=== PATIENT | male | born 1955 | race Caucasian/White ===

== ENCOUNTER 2017-05-09 08:02 | Outpatient (CLI) | payer OTHER ==
[2017-05-09 13:14] LABS: BASOPHILS % (AUTO) 0.6 %; EOSINOPHILS # (AUTO) 0.1 10^3/uL (0.0-0.7); EOSINOPHILS % (AUTO) 1.7 %; HCT - HEMATOCRIT 47.6 % (42.0-52.0); HGB - HEMOGLOBIN 16.9 g/dL (14.0-18.0); LYMPHOCYTES # (AUTO) 1.9 10^3/uL (1.5-3.5); LYMPHOCYTES % (AUTO) 38.4 %; MEAN CORPUSCULAR HGB CONC 35.5 g/dL (32.0-36.0); MEAN CORPUSCULAR VOLUME 90.2 fL (80.0-94.0); MEAN PLATELET VOLUME 8.2 fL (7.4-11.4); MONOCYTES # (AUTO) 0.4 10^3/uL (0.0-1.0); MONOCYTES % (AUTO) 7.7 %; NEUTROPHILS # (AUTO) 2.6 10^3/uL (1.5-6.6); NEUTROPHILS % (AUTO) 51.6 %; NUCLEATED RED BLOOD CELLS AUTO 0.1 /100WBC; RED BLOOD COUNT 5.27 10^6/uL (4.70-6.10); RED CELL DISTRIBUTION WIDTH 13.4 % (12.0-15.0)
[2017-05-09 13:35] LABS: ALBUMIN/GLOBULIN RATIO 2.2 (1.0-2.2); BUN - BLOOD UREA NITROGEN 17 mg/dL (6-20); CALCIUM 9.5 mg/dL (8.5-10.3); CARBON DIOXIDE - CO2 26 mmol/L (21-32); CHLORIDE 104 mmol/L (101-111); CHOL/HDL RATIO 6.3 (<5.0); CHOLESTEROL 246 mg/dL; GFR - MDRD 75 (>89); GLUCOSE 114 mg/dL (70-100); HDL CHOLESTEROL 39 mg/dL; POTASSIUM 4.1 mmol/L (3.5-5.0); SODIUM 137 mmol/L (135-145); TOTAL PROTEIN 7.4 g/dL (6.7-8.2); TRIGLYCERIDES 434 mg/dL
[2017-05-09 13:54] LABS: LDL CHOLESTEROL,DIRECT 125 mg/dL
== END 2017-05-09 08:03 | disposition home or self-care (01) ==
LOC: LAB.WCP 08:02
PROVIDERS: ATTEND Family Medicine
DX: I10 Essential (primary) hypertension (principal); K21.9 Gastro-esophageal reflux disease without esophagitis; E78.5 Hyperlipidemia, unspecified; N40.0 Benign prostatic hyperplasia without lower urinary tract symptoms
CPT/HCPCS: 36415; 80053; 80061; 84153; 85025

== ENCOUNTER 2019-11-01 08:00 | Outpatient (CLI) | payer MEDICARE, OTHER | END 2019-11-01 23:59 | disposition home or self-care (01) | LOC: LAB.WCP 08:00 | PROVIDERS: ATTEND Family Medicine | DX: Z11.59 Encounter for screening for other viral diseases (principal) | CPT/HCPCS: 81599 ==

== ENCOUNTER 2023-12-23 08:13 | Outpatient (CLI) | payer MEDICARE, OTHER ==
[2023-12-23] MEDS ORDERED: iohexoL-300 100 ML VIAL ONE (08:22)
[2023-12-23] MEDS: iohexoL-300 100 ML VIAL IVP ONE (08:51)
--- NOTE | 2023-12-24 17:44 | CT Report ---
PROCEDURE: Abdomen W/WO INDICATIONS: ABN US OF KIDNEYS CONTRAST: Omni 300 140ml TECHNIQUE: After the administration of intravenous contrast, 5 mm thick sections acquired from the diaphragm to the symphysis. 5 mm coronal and sagittal reformats were acquired. For radiation dose reduction, the following was used: automated exposure control, adjustment of mA and/or kV according to patient siz e. COMPARISON: Correlation is made with ultrasound, 10/24/2023 FINDINGS: Image quality: Excellent. Genitourinary: On precontrast imaging, no stones are seen. On postcontrast imaging, no masses are seen. On the right, there is a likely prominent column of prot ein. When filled with contrast, the renal calyces and the visualized ureters demonstrate no filling defect s. OTHER: Lung bases and heart: Unremarkable. Liver: No solid mass. Multiple enhancing liver lesions are seen, measuring up to 11 mm, which most li neftali represent cysts. There is a potential liver hemangioma seen within segment 5, as on series 14 im age 21, measuring 18 mm. Gallbladder and biliary tree: Within normal limits. Spleen: No splenomegaly. Pancreas: No pancreatic ductal dilation. Adrenals: No adrenal nodule. Bowel and peritoneum: No bowel distension. No pathologic free fluid. Lymph nodes: No central or retroperitoneal adenopathy. Vessels: No infrarenal aortic aneurysm. Bones: No aggressive osseous abnormality. Focal lower lumbar spine degenerative changes are seen. Other: No significant ventral hernia. IMPRESSION: No renal masses are seen. The ultrasound abnormality is likely related to a prominent column of Wes. Likely liver hemangioma, 1.8 cm. Additional findings: Presumed liver cysts Focal lower lumbar spine degenerative change Reviewed by: Dimitris Logan MD on 12/24/2023 4:43 PM AKDT Approved by: Dimitris Logan MD on 12/24/2023 4:43 PM AKDT Station ID: [id number]
== END 2023-12-23 08:14 | disposition home or self-care (01) ==
LOC: DI 08:13
PROVIDERS: ATTEND Internal Medicine
DX: R93.41 Abnormal radiologic findings on diagnostic imaging of renal pelvis, ureter, or bladder (principal); R93.2 Abnormal findings on diagnostic imaging of liver and biliary tract; M47.816 Spondylosis without myelopathy or radiculopathy, lumbar region
CPT/HCPCS: 74170; Q9967

== ENCOUNTER 2023-12-24 09:04 | Outpatient (CLI) | payer MEDICARE, OTHER ==
[2023-12-24] MEDS ORDERED: iohexoL-300 100 ML VIAL ONE (09:08)
[2023-12-24] MEDS: iohexoL-300 100 ML VIAL IVP ONE (11:04)
--- NOTE | 2023-12-24 18:46 | CT Report ---
PROCEDURE: Abdomen W/WO INDICATIONS: ABN US OF LIVER CONTRAST: Omni 300 100ml TECHNIQUE: After the administration of intravenous contrast, 5 mm thick sections acquired from the diaphragm to the symphysis. 5 mm coronal and sagittal reformats were acquired. For radiation dose reduction, the following was used: automated exposure control, adjustment of mA and/or kV according to patient siz e. COMPARISON: CT of abdomen and pelvis dated 12/23/2023 and ultrasound of abdomen dated 10/24/2023. FINDINGS: Image quality: Excellent. Genitourinary: No stones or hydronephrosis. No enhancing renal lesion or perinephric fat stranding. Kidney findings are unchanged from previous day. Normal excretion is seen in bilateral kidneys. Donita l-appearing bilateral proximal to mid ureters. OTHER: Lung bases and heart: Unremarkable. Liver: Numerous hepatic cysts are again seen unchanged from prior study. Previously described 18 mm h ypodense structure within inferior aspect of left hepatic lobe is again seen and show questionable pe ripheral nodular enhancement best seen on series 18 image 26. There is questionable filling of this l esion on delayed phase of the scan. Gallbladder and biliary tree: No radiopaque stones or wall thickening. No biliary dilation. Spleen: No splenomegaly. Pancreas: No pancreatic ductal dilation. Adrenals: No adrenal nodule. Bowel and peritoneum: No bowel distension. No pathologic free fluid. Lymph nodes: No central or retroperitoneal adenopathy. Vessels: No infrarenal aortic aneurysm. Bones: No aggressive osseous abnormality. Other: No significant ventral hernia. IMPRESSION: 1. Finding likely represent 1.8 cm hemangioma involving inferior aspect of right hepatic lobe. Consi rafiq six-month CT or MRI of abdomen without and with contrast follow-up for evaluation of stability. 2. Additional benign-appearing small hepatic cysts unchanged from prior studies. 3. No acute inflammatory process is seen in abdomen. 4. No renal stones or hydronephrosis. No enhancing renal lesion. Reviewed by: Deandre Ramos MD on 12/24/2023 6:45 PM PDT Approved by: Deandre Ramos MD on 12/24/2023 6:45 PM PDT Station ID: [id number]
== END 2023-12-24 09:05 | disposition home or self-care (01) ==
LOC: DI 09:04
PROVIDERS: ATTEND Internal Medicine
DX: K76.89 Other specified diseases of liver (principal)
CPT/HCPCS: 74170; Q9967

== ENCOUNTER 2024-01-27 13:48 | Outpatient (CLI) | payer MEDICARE, OTHER ==
--- NOTE | 2024-01-27 14:11 | CARDIAC PROCEDURE NOTE ---
Stress Test Report Service Date: 01/27/24 Service Time: 14:00 Ordering Provider: Americo Wheeler MD Indication for Test: Assess exertional dyspnea with intermittent chest pressure +/- diaphoresis. Significant Medical History: Americo is referred for an ETT today, to assess gradually progressive exertional dyspnea, that has been occurring while climbing hills or stairs over the past several months, at times associated with substernal chest discomfort, at times with diaphoresis and/or lightheadedness. He does not recall any discrete events that precipitated this decline and he does not experience these symptoms at rest. He has been evaluated by Dr. Wheeler in December who referred him for today's study. Workup for his symptoms in October of this year included a transthoracic echocardiogram showing normal left ventricular size, normal LV ejection fraction, severe left atrial enlargement, eccentric moderate aortic valve regurgitation, mild to moderate mitral valve regurgitation and estimated PASP of 34 mmHg. He has recently undergone a rhythm monitor study, results of which are pending; he recalls pressing the button several times for lightheadedness. He has had previous ETT's with normal results, last 2 years ago, according to his memory. Cardiac Risk Factors: Positive for hypertension (treated for past 6-8 years), hyperlipidemia (for about same duration) and family history of CAD in his mother and maternal grandmother); no history of diabetes and though he smoked earlier in his life he quit 21 years ago, decreasing risk attributable to tobacco). Type of Stress Test: Exercise Treadmill Test (ETT) Procedure: -Exercise Treadmill Test- After signing informed consent, the patient performed treadmill exercise using a Wei protocol. The patient exercised for 7 minutes 42 seconds and achieved a peak heart rate of 135 (89 percent predicted maximum heart rate for age), and an estimated workload of 9.7 METS. The test was terminated due to fatigue/shortness of breath with chest pressure and radiation to the left arm. Resting heart rate: 78 Peak heart rate: 135 Normal response to exercise. Resting BP: 141/72 Peak BP: 209/74 Hypertensive BP response to exercise. Room air oxygen saturation during exercise ranged between 96-98%. Rhythm during exercise: Sinus rhythm throughout with rare isolated PVCs. Symptoms: As above, he experienced chest pressure in late stage II with a subsequent "abnormal" feeling in his left arm. The discomfort persisted during the 1 minute cool down period and a sublingual nitroglycerin tablet was then administered. At the time of administration he rated his chest discomfort as 3/10 in severity and within 30 seconds the chest discomfort was completely resolved. He denied experiencing any lightheadedness throughout this episode. EKG at rest showed normal sinus rhythm with positionally variable small q waves in leads V1 and V2, with baseline mild elevation in multiple leads most consistent with normal variant early repolarization. EKG at peak stress showed inconsistent ST depression, at times meeting diagnostic criteria for ischemia in leads III, aVF and V6. In Recovery HR and BP decreased towards baseline (HR was 101, BP 174/81 at 5:00). No imaging was ordered with this stress test. I, Rashaun Crawford MD, was present throughout this treadmill stress study and supervised it in its entirety. Summary: 1) Exercise tolerance was above average for age and sex as evidenced by JOSE FRANCISCO of - 8%. 2) Abnormal resting EKG. 3) Adequate level of exercise was achieved on this treadmill stress test. 4) Abnormal hypertensive BP response to exercise. 5) Borderline ischemic changes by EKG criteria were seen at peak stress. 6) No imaging was ordered with this test. Conclusions and Recommendations: 1) Favorable findings included exercise time above average for age and sex and a robust hemodynamic response, however he recreated his exertional symptoms, with ST segments that variably appear to meet criteria for ischemia. Furthermore a sublingual nitroglycerin that was administered while his chest discomfort was decreasing resulted in almost immediate full resolution of his discomfort. 2) Another concerning finding was the variable appearance of small q waves in leads V1 and V2, concerning for a prior ischemic event, though corresponding wall motion abnormality was not reported of recent resting echocardiogram. 3) I encouraged him to remain active but limit his exertion to about 70% of maximal pending further advice from his care team.
--- NOTE | 2024-01-27 14:40 | CARDIAC PROCEDURE NOTE ---
Stress Test Report Service Date: 01/27/24 Service Time: 14:00 Ordering Provider: Gurwinder Wheeler MD Indication for Test: Assess exertional dyspnea, at times with associated chest discomfort. Type of Stress Test: Exercise Treadmill Test (ETT) Procedure: -Exercise Treadmill Test- After signing informed consent, the patient underwent echo imaging at rest and then performed treadmill exercise using a Wei protocol. The patient exercised for [] minutes and achieved a peak heart rate of [] ([] percent predicted maximum heart rate for age), and an estimated workload of [] METS. The test was terminated due to [achieving target heart rate][fatigue/shortness of breath][chest pain occurred before achieving target HR][pain in --- and could not continue exercise][developed --- rhythm and test stopped][drop in blood p ressure occurred and test stopped]. Resting heart rate: [] Peak heart rate: [] [Normal][Abnormal] response to exercise. Resting BP: [] Peak BP: [] [Normal][Hypertensive][Hypotensive] BP response to exercise. Room air oxygen saturation during exercise ranged between []-[]% Rhythm during exercise: [] Symptoms: []. EKG at rest showed []. EKG at peak stress showed [no ischemia by EKG criteria][ischemic changes were present][]. In Recovery []. [No imaging was ordered with this stress test.][Nuclear imaging performed at rest and with stress and will be reported separately.][Echo imaging performed at rest and with stress will be reported separately.] [IRashaun MD, was present throughout this treadmill stress study and supervised it in its entirety.]
== END 2024-01-27 13:49 | disposition home or self-care (01) ==
LOC: DI 13:48
PROVIDERS: ATTEND Internal Medicine Cardiovascular Disease
DX: I35.1 Nonrheumatic aortic (valve) insufficiency (principal); R94.31 Abnormal electrocardiogram [ECG] [EKG]; R06.02 Shortness of breath; I10 Essential (primary) hypertension; E78.5 Hyperlipidemia, unspecified; Z82.49 Family history of ischemic heart disease and other diseases of the circulatory system; Z87.891 Personal history of nicotine dependence
CPT/HCPCS: 93017